=== PATIENT | male | born 1970 | race Caucasian/White ===

== ENCOUNTER 2018-08-16 14:17 | Observation (INO) | payer SELFPAY ==
[~2018-08-16] VITALS: Ht 165.1 cm; Wt 86.4 kg
--- NOTE | ~2018-08-16 | EC ---
PATIENT:EVIE GODOY DATE OF SERVICE: 08/16/18 SEX: M MEDICAL RECORD: [id number] DATE OF : 68 LOCATION:D.M2 D.211 AGE OF PATIENT: 48 ADMISSION DATE: 08/16/18 REFERRING PHYSICIAN: INTERPRETING PHYSICIAN: MEGAN WAITE MD ECHOCARDIOGRAM REPORT ECHO CHARGES 4 ECHO COMPLETE Date: 08/17/18 CLINICAL DIAGNOSIS: DYSPNEA ECHOCARDIOGRAPHIC MEASUREMENTS (adult normal given) AC root (d.<3.7cm) 3.1 cm LV Septum d (<1.2 cm> 1.2 cm Valve Excursion 2.0 cm LV Septum (systole) 1.8 cm Left Atria (s.<4.0cm> 3.4 cm LVPW d(<1.2cm) 1.4 cm RV (d.<2.3cm) 2.9 cm LVPW (sytole) 2.0 cm LV diastole(<5.6CM) 5.1 cm MV E-F(>70mm/sec) cm LV systole 2.8 cm LVOT Diameter 1.8 cm MV exc.(>10mm) cm Est.ejection fraction (50-75%) % DOPPLER: LVIT cm/sec A 55.0 cm/sec E 84.0 cm/sec LA cm/sec RVSP 27.0 mmHg LVOT 146 cm/sec AOP1/2T m/s Asc. Ao 200 cm/sec RVOT 73.0 cm/sec RA cm/sec PA 147 cm/sec AV Gradient Peak 16.0 mmHg AV Mean 6.0 mmHg AV Area 2.3 cm MV Gradient Peak 4.4 mmHg MV Mean 1.7 mmHg MV Area cm COMMENTS: Artillery Specialist: Abby JAVEDOE Business Unit Leader: 1 Dr. Waite TAPE# PACS Pericardial Effusion N DATE OF SERVICE: 08/17/2018 FINDINGS: 1. Left ventricular chamber size is within normal limits. Left ventricular systolic function is normal. Overall ejection fraction estimated at 65%. 2. Left atrium is enlarged at 5.4 cm. Right atrium and right ventricular chamber sizes are upper limits of normal. 3. Valvular structures have normal structure and motion. 4. Doppler interrogation only reveals trace tricuspid regurgitation. No other valvular insufficiency or stenosis. Pulmonary systolic pressure is estimated at ECHOCARDIOGRAM REPORT [id number] EVIE GODOY 27 mmHg. 5. No evidence of pericardial effusion or left ventricular thrombus. TRANSINT:[id number] Voice Confirmation ID: [id number] DOCUMENT ID: [id number] MEGAN WAITE MD at 1913 CC: [id number] DICTATION DATE: 08/18/18 1023 PLATFORM MATERIAL HANDLER MANAGER: 08/18/18 1137 DIS IN 08/18/18 [facility] [address] [id number]
--- NOTE | ~2018-08-16 | MORECARE ---
CASE MANAGEMENT DISCHARGE SUMMARY PATIENT: EVIE GODOY UNIT: [id number] ADM DATE: 08/16/18 AGE: 48 : [birth year] SEX: M ROOM/BED: D.2111 AUTHOR: MARNIE CHADWICK PHYSICIAN: REFERRING PHYSICIAN: NEAL MEDEIROS MD DATE OF SERVICE: 08/20/18 Discharge Plan Patient Name: EVIE GODOY Facility: [facility]:[place] : 1970 Planned Disposition: Home Anticipated Discharge Date: 08/18/18 Discharge Date: 08/18/2018 Expected LOS: 2 Initial Reviewer: [email or web address] Initial Review Date: 08/20/2018 Generated: 08/20/18 9:40 am Patient Name: EVIE GODOY Page [id number] at 0840 All edits/amendments must be made on the electronic document DICTATION DATE: 08/20/18 0840 ELECTRICIAN YARD: CHRISTEL 08/20/18 0840 RPT#: [id number] DC DATE:08/18/18 STATUS: DIS IN [address] [place] [address] END OF REPORT
[2018-08-16 14:51] LABS: BASOPHILS 0.7 % (0-2); EOSINOPHILS 3.5 % (0-7); HEMATOCRIT 42.9 % (42.0-54.0); HEMOGLOBIN 15.5 g/dL (13.5-17.5); IMMATURE GRANULOCYTES 0.2 % (0-5); LYMPHOCYTES 29.6 % (15-50); MCH 32.7 pg (26.0-34.0); MCHC 36.1 g/dL (31.0-37.0); MCV 90.5 fL (80.0-100.0); MEAN PLATELET VOLUME 9.7 fL (7.4-10.4); MONOCYTES 10.2 % (2-11); NEUTROPHILS 55.8 % (40-80); PLATELET COUNT 198 10x3/uL (130-400); RBC 4.74 10x6/uL (4.20-6.10); RDW 11.9 % (11.5-14.5)
[2018-08-16 15:03] LABS: ALBUMIN 3.5 g/dL (3.4-5.0); ALKALINE PHOSPHATASE 81 U/L (46-116); ALT (SGPT) 183 U/L (10-68); CALC OSMOLALITY 264 mosm/kg (275-300); CALCIUM 8.8 mg/dL (8.5-10.1); CARBON DIOXIDE 24.2 mmol/L (21.0-32.0); CHLORIDE - SERUM 96 mmol/L (98-107); CREATININE - SERUM 0.8 mg/dL (0.6-1.3); GLUCOSE 102 mg/dL (74-106); POTASSIUM - SERUM 3.8 mmol/L (3.5-5.1); PROTEIN - SERUM 7.3 g/dL (6.4-8.2); SODIUM 133 mmol/L (136-145); UREA NITROGEN 11 mg/dL (7-18); eGFR NON AFRICAN AMERICAN > 90 mL/min (90-120)
[2018-08-16 15:05] LABS: AMYLASE - SERUM 75 U/L (25-115); LIPASE 437 U/L (73-393); TROPONIN-I < 0.017 ng/mL (0.000-0.060)
[2018-08-16 16:14] VITALS: BP 115/79
[2018-08-16 16:45] VITALS: BP 126/82
[2018-08-16 16:51] LABS: UDS - AMPHET POSITIVE QUAL (NEGATIVE); UDS - BARB NEGATIVE QUAL (NEGATIVE); UDS - BENZO NEGATIVE QUAL (NEGATIVE); UDS - COCAINE NEGATIVE QUAL (NEGATIVE); UDS - OPIATE POSITIVE QUAL (NEGATIVE); UDS - PCP NEGATIVE QUAL (NEGATIVE); UDS - THC POSITIVE QUAL (NEGATIVE)
[2018-08-16 16:58] LABS: APPEARANCE CLEAR (CLEAR); BILIRUBIN NEGATIVE (NEGATIVE); COLOR DK YELLOW (YELLOW); GLUCOSE NEGATIVE (NEGATIVE); KETONE NEGATIVE (NEGATIVE); NITRITE NEGATIVE (NEGATIVE); PROTEIN NEGATIVE (NEGATIVE); SPECIFIC GRAVITY 1.015 (1.005-1.020); UROBILINOGEN NORMAL (NORMAL)
[2018-08-16 17:15] VITALS: BP 129/83
[2018-08-16 18:59] LABS: APTT 25.5 SECONDS (22.8-39.4); INR 1.05 (0.85-1.17); PROTIME 13.3 SECONDS (11.6-15.0)
[2018-08-16 23:48] VITALS: BP 127/75; BMI 31.6
[2018-08-17 01:00] VITALS: BP 123/71
[2018-08-17 04:00] VITALS: BP 122/65
[2018-08-17 04:18] LABS: BASOPHILS 0.8 % (0-2); EOSINOPHILS 3.9 % (0-7); HEMATOCRIT 43.1 % (42.0-54.0); HEMOGLOBIN 15.5 g/dL (13.5-17.5); IMMATURE GRANULOCYTES 0.2 % (0-5); LYMPHOCYTES 30.6 % (15-50); MCH 32.9 pg (26.0-34.0); MCV 91.5 fL (80.0-100.0); MEAN PLATELET VOLUME 9.5 fL (7.4-10.4); MONOCYTES 9.6 % (2-11); NEUTROPHILS 54.9 % (40-80); PLATELET COUNT 176 10x3/uL (130-400); RBC 4.71 10x6/uL (4.20-6.10); WBC 6.3 10x3/uL (4.8-10.8)
[2018-08-17 04:36] LABS: ALBUMIN 3.2 g/dL (3.4-5.0); ALKALINE PHOSPHATASE 71 U/L (46-116); ALT (SGPT) 158 U/L (10-68); AMYLASE - SERUM 65 U/L (25-115); BILIRUBIN - TOTAL 4.09 mg/dL (0.2-1.3); CALCIUM 8.7 mg/dL (8.5-10.1); CHLORIDE - SERUM 99 mmol/L (98-107); CREATININE - SERUM 0.8 mg/dL (0.6-1.3); GLUCOSE 90 mg/dL (74-106); LIPASE 261 U/L (73-393); POTASSIUM - SERUM 4.1 mmol/L (3.5-5.1); PROTEIN - SERUM 6.6 g/dL (6.4-8.2); SODIUM 136 mmol/L (136-145); eGFR NON AFRICAN AMERICAN > 90 mL/min (90-120)
[2018-08-17 04:44] LABS: CALC OSMOLALITY 272 mosm/kg (275-300); CARBON DIOXIDE 30.3 mmol/L (21.0-32.0); UREA NITROGEN 14 mg/dL (7-18)
[2018-08-17 08:08] VITALS: BP 111/60
[2018-08-17 10:55] VITALS: BP 127/66
[2018-08-17 13:57] VITALS: Ht 165.1 cm; Wt 86.4 kg
[2018-08-17 15:58] VITALS: BP 122/77
[2018-08-17 21:05] VITALS: BP 138/69
[2018-08-18 01:11] VITALS: BP 127/75
[2018-08-18 05:16] LABS: BASOPHILS 0.7 % (0-2); HEMATOCRIT 40.6 % (42.0-54.0); HEMOGLOBIN 14.3 g/dL (13.5-17.5); LYMPHOCYTES 32.5 % (15-50); MCH 32.3 pg (26.0-34.0); MCHC 35.2 g/dL (31.0-37.0); MCV 91.6 fL (80.0-100.0); MEAN PLATELET VOLUME 9.7 fL (7.4-10.4); MONOCYTES 9.3 % (2-11); NEUTROPHILS 53.5 % (40-80); PLATELET COUNT 181 10x3/uL (130-400); RBC 4.43 10x6/uL (4.20-6.10); RDW 12.2 % (11.5-14.5); WBC 5.8 10x3/uL (4.8-10.8)
[2018-08-18 05:35] LABS: ALBUMIN 2.9 g/dL (3.4-5.0); ALKALINE PHOSPHATASE 146 U/L (46-116); BILIRUBIN - TOTAL 1.33 mg/dL (0.2-1.3); CALCIUM 7.4 mg/dL (8.5-10.1); CARBON DIOXIDE 28.9 mmol/L (21.0-32.0); CHLORIDE - SERUM 104 mmol/L (98-107); CREATININE - SERUM 0.7 mg/dL (0.6-1.3); LIPASE 483 U/L (73-393); MAGNESIUM - SERUM 2.3 mg/dL (1.8-2.4); POTASSIUM - SERUM 3.8 mmol/L (3.5-5.1); PROTEIN - SERUM 6.3 g/dL (6.4-8.2); SODIUM 138 mmol/L (136-145); eGFR NON AFRICAN AMERICAN > 90 mL/min (90-120)
[2018-08-18 05:39] LABS: AMYLASE - SERUM 82 U/L (25-115); GLUCOSE 141 mg/dL (74-106)
[2018-08-18 05:40] LABS: ALT (SGPT) 118 U/L (10-68); CALC OSMOLALITY 276 mosm/kg (275-300); UREA NITROGEN 10 mg/dL (7-18)
[2018-08-18 05:45] VITALS: BP 128/80
[2018-08-18 08:17] VITALS: BP 135/70
[2018-08-18 09:13] LABS: HEPATITIS C ANTIBODY <0.1 (0.0-0.9)
[2018-08-18] MEDS ORDERED: ULTRAM50 MG PO (12:41)
[2018-08-18 12:50] VITALS: BP 137/66
[2018-08-18 15:31] VITALS: BP 164/94
== END 2018-08-18 17:25 | disposition home or self-care (01) ==
LOC: D.ER 14:17 → D.EDHOLD 18:36 → D.M2 18:36 → OBSVTIME 18:37 → D.M2 18:58
PROVIDERS: Emergency Medicine; Family Medicine
DX: K85.90 Acute pancreatitis without necrosis or infection, unspecified (principal); K76.0 Fatty (change of) liver, not elsewhere classified; F10.20 Alcohol dependence, uncomplicated; F15.90 Other stimulant use, unspecified, uncomplicated; F12.90 Cannabis use, unspecified, uncomplicated; F11.90 Opioid use, unspecified, uncomplicated; F17.213 Nicotine dependence, cigarettes, with withdrawal